=== PATIENT | female | born 1960 | race Two or more races ===

== ENCOUNTER 2016-10-06 09:03 | Emergency (ER) | payer OTHER ==
[2016-10-06 09:11] VITALS: TEMP 97.6; BMI 32.5
--- NOTE | 2016-10-06 09:49 | PDOC ---
History of Present Illness <Sina Pacheco - Last Filed: 10/06/16 13:07> - History of Present Illness Initial Comments: 10/06/16 15:12 Patient is a 56 year old female with significant medical hx of HLD and HTN who is presenting to the ED after an episode of vertigo from last night. The patient reports waking up at 4 AM with the sensation that the room is spinning. The patient fell back asleep and woke up this morning feeling lightheaded but no longer dizzy. Patient came to the hospital today for a mammogram and decided to come down to the ED for further evaluation. Pt denies any further vertigo/ dizziness, headache, dizziness. Denies any nausea, vomiting, headache, palpitations, chest pain, shortness of breath, vision changes, blurry vision, speech changes, numbness, tingling, weakness, recent colds, recent infections, or hearing changes. PMD: Nina Verdugo MD Surgical Hx: cholecystectomy <Fabiola Guerrero - Last Filed: 10/06/16 15:13> - General Chief Complaint: Lightheaded Stated Complaint: DIZZINESS Time Seen by Provider: 10/06/16 09:39 Past History - Past Medical History HTN: Yes Hypercholesterolemia: Yes - Surgical History Cholecystectomy: Yes - Immunization History Immunization Up to Date: Yes - Psycho/Social/Smoking Cessation Hx Anxiety: No Suicidal Ideation: No Smoking Status: No Smoking History: Former smoker Have you smoked in the past 12 months: No Number of Cigarettes Smoked Daily: 1 If you are a former smoker, when did you quit?: 1998 Information on smoking cessation initiated: No Hx Alcohol Use: No Drug/Substance Use Hx: No Substance Use Type: None <Sina Pacheco - Last Filed: 10/06/16 13:07> <Fabiola Guerrero - Last Filed: 10/06/16 15:13> - Past Medical History Allergies/Adverse Reactions: Allergies Allergy/AdvReac Type Severity Reaction Status Date / Time No Known Allergies Allergy Verified 10/06/16 09:08 Home Medications: Ambulatory Orders Aspirin [ASA -] 81 mg PO DAILY 10/06/16 Hydrochlorothiazide [Hctz -] 12.5 mg PO DAILY 10/06/16 Lovastatin 10 mg PO DAILY 10/06/16 Meclizine HCl [Antivert -] 25 mg PO TID PRN #20 tablet 10/06/16 Review of Systems - Review of Systems Comments:: 10/06/16 15:12 CONSTITUTIONAL: No reported: Fever, Chills, Diaphoresis, Generalized Weakness, Malaise, Loss of Appetite HEENT: No reported: Rhinorrhea, Nasal Congestion, Throat Pain, Throat Swelling, Difficulty Swallowing, Mouth Swelling, Ear Pain, Eye Pain, Visual Changes CARDIOVASCULAR: No reported: Chest Pain, Syncope, Palpitations, Irregular Heart Rate, Lightheadedness, Peripheral Edema RESPIRATORY: No reported: Cough, Shortness of Breath, SOB with Exertion, Orthopnea, Wheezing , Stridor, Hemoptysis GASTROINTESTINAL: No reported: Abdominal pain, Abdominal Distension, Nausea, Vomiting, Diarrhea, Constipation, Melena, Hematochezia GENITOURINARY: No reported: Dysuria, Frequency, Urgency, Hesitancy, Flank Pain, Genital Pain MUSCULOSKELETAL: Reported: Neck Pain No reported: Myalgia, Arthralgia, Joint Swelling, Back pain SKIN: No reported: Rash, Itching, Pallor HEMEATOLOGIC/IMMUNOLOGIC: No reported: Easy Bleeding, Easy Bruising, Lymphadenopathy, Frequent infections ENDOCRINE: No reported: Unexplained Weight Gain, Unexplained Weight Loss, Heat Intolerance , Cold Intolerance NEUROLOGIC: Reported: Vertigo, Lightheadedness No reported: Headache, Focal Weakness, Paresthesias, Unsteady Gait, Seizure, Mental Status Changes, Incontinence PSYCHIATRIC: No reported: Anxiety, Depression <Violeta Guerreroa - Last Filed: 10/06/16 15:13> *Physical Exam - Vital Signs Last Vital Signs Temp Pulse Resp BP Pulse Ox 97.6 F 71 18 164/57 98 10/06/16 09:08 10/06/16 09:08 10/06/16 09:08 10/06/16 09:08 10/06/16 09:08 <TaraFelibertoSina - Last Filed: 10/06/16 13:07> - Vital Signs Last Vital Signs Temp Pulse Resp BP Pulse Ox 97.6 F 66 18 134/72 99 10/06/16 09:08 10/06/16 12:55 10/06/16 12:55 10/06/16 12:55 10/06/16 12:55 - Physical Exam Comments: 10/06/16 15:12 GENERAL: The patient is awake, alert, and fully oriented, Nontoxic - in no acute distress. HEAD: Normocephalic, atraumatic. EYES: extraocular movements intact, sclera anicteric, conjunctiva clear. No nystagmus ENT: Normal voice, Moist mucous membranes. NECK: Normal range of motion, supple LUNGS: Breath sounds equal, clear to auscultation bilaterally. No wheezes, no rhonchi, no rales. HEART: Regular rate and rhythm, without murmur, rub or gallop. ABDOMEN: Soft, nontender, normoactive bowel sounds. No guarding, no rebound.No CVA tenderness EXTREMITIES: Normal range of motion, no edema. No clubbing or cyanosis. No cords, erythema, or tenderness. PSYCH: Normal mood, normal affect. SKIN: Warm, Dry, normal turgor. NEURO: Mental status: The patient is oriented x3. Cranial nerves: Cranial nerves II through XII are intact Motor: The upper extremities are 5 over 5 in all muscle groups. The lower extremities are 5 over 5 in all muscle groups. Negative pronator drift Sensation: Sensation is intact to light touch throughout. romberg negative Cerebellar: Zdvelg-kpugfy-wzud is normal in both upper extremities. Heel-knee- clemons is normal in both lower extremities. rapid alternating movements are normal.Gait: Normal. Heel and toe walking are normal. Tandem gait is normal. <Fabiola Guerrero - Last Filed: 10/06/16 15:13> Heart Score/ECG Review - ECG Impressions Comment:: 10/06/16 13:07 Twelve-lead EKG was performed and reviewed by me. There is normal sinus rhythm with a normal rate. Rate of 60 The axis is normal. First degree AV block There is normal R wave progression There are no ST or T wave abnormalities. <Sina Pacheco - Last Filed: 10/06/16 13:07> ED Treatment Course - LABORATORY CBC & Chemistry Diagram: 10/06/16 10:24 10/06/16 10:24 <Sina Pacheco - Last Filed: 10/06/16 13:07> - LABORATORY CBC & Chemistry Diagram: 10/06/16 10:24 10/06/16 10:24 - ADDITIONAL ORDERS Additional order review: Laboratory Results 10/06/16 10/06/16 10:24 10:24 Sodium 141 Potassium 4.2 Chloride 102 Carbon Dioxide 31 Anion Gap 8 BUN 20 H D Creatinine 0.9 D Creat Clearance w eGFR > 60 Random Glucose 102 Calcium 9.8 Total Bilirubin 0.6 D AST 19 ALT 25 Alkaline Phosphatase 111 Total Protein 7.4 Albumin 3.9 Urine Color Colorless Urine Appearance Clear Urine pH 6.0 Ur Specific [place] 1.002 Urine Protein Negative Urine Glucose (UA) Negative Urine Ketones Negative Urine Blood 1+ H Urine Nitrite Negative Urine Bilirubin Negative Urine Urobilinogen Negative Ur Leukocyte Esterase Negative Urine RBC None Urine WBC 1 Ur Epithelial Cells Rare 10/06/16 10:24 RBC 4.91 MCV 82.5 MCHC 33.0 RDW 13.8 MPV 8.3 Neutrophils % 77.4 Lymphocytes % 13.8 D Monocytes % 5.4 Eosinophils % 2.6 Basophils % 0.8 - Medications Given in the ED: ED Medications Discontinued Medications Generic Name Dose Route Start Last Admin Trade Name Freq PRN Reason Stop Dose Admin Sodium Chloride 1,000 mls @ 1,000 mls/hr 10/06/16 10:00 10/06/16 10:21 Normal Saline - IV 10/06/16 10:59 1,000 mls/hr .Q1H ONE Administration Meclizine HCl 25 mg 10/06/16 10:00 10/06/16 11:03 Antivert - PO 10/06/16 10:01 Not Given ONCE ONE Metoclopramide HCl 10 mg 10/06/16 10:00 10/06/16 11:03 Reglan Injection - IVPUSH 10/06/16 10:01 Not Given ONCE ONE <Fabiola Guerrero - Last Filed: 10/06/16 15:13> Medical Decision Making - Medical Decision Making 10/06/16 10:19 56y F hx of htn, hl, presents with complaint of vertigo in the middle of the night, when she woke up, she saw the room spinning, she went back to bed and the sypmtoms have largely resolved. Pt feels fine, denies associated palptiations, sob, cp, n/v, vision changes, dysarthria, numbness/tingling/ weakness. Pts xam is unremarakble here. possible bppv will ck labs to r/o anemia and metabolic dernagement pt feeling well and declines any meds/treatment A portion of this note was documented by scribe services under my direction. I have reviewed the details of the note, within reason, and agree with the documentation with the following case summary and management plan written by me 10/06/16 13:05 labs unremarakble pt feeling well, not dizzy, no symptoms. will dc with pmd fu return precautions were discussed I discussed the physical exam findings, ancillary test results and final diagnoses with the patient. I answered all of the patient's questions. The patient was satisfied with the care received and felt comfortable with the discharge plan and treatment plan. The patient will call their primary care physician within 24 hours to arrange follow-up and will return to the Emergency Department with any new, persistent or worsening symptoms. <Sina Pacheco - Last Filed: 10/06/16 13:07> *DC/Admit/Observation/Transfer - Discharge Dispostion Admit: No <Sina Pacheco - Last Filed: 10/06/16 13:07> - Attestations Scribe Attestion: 10/06/16 15:13 Documentation prepared by Fabiola Guerrero, acting as medical geneticist for Sina Pacheco MD. <Fabiola Guerrero - Last Filed: 10/06/16 15:13> Diagnosis at time of Disposition: Vertigo - Discharge Dispostion Disposition: HOME Condition at time of disposition: Improved - Prescriptions Prescriptions: Meclizine HCl [Antivert -] 25 mg PO TID PRN #20 tablet PRN Reason: Vertigo - Referrals Referrals: Nina Verdugo NP [Primary Care Provider] - Bobby Villanueva MD [Staff Physician] - - Patient Instructions Printed Discharge Instructions: DI for Benign Paroxysmal Positional Vertigo, DI for Vertigo Additional Instructions: Return to the emergency department immediately with ANY new, persistent or worsening symptoms including any dizziness, nausea, vomiting, vision changes, changes in your speech pattern or any other concerns. If the dizziness recurs you may try taking a meclizine You MUST call and follow up with your doctor tomorrow for further evaluation of your symptoms. Results were discussed with you. Please make sure your doctor reviews the results of your emergency evaluation.
[2016-10-06] MEDS ORDERED: MECLIZINE HCL 25 MG TABLET (FP) PO ONE (10:00)
[2016-10-06] MEDS ORDERED: SODIUM CHLORIDE 1,000 ML IV ONE (10:00)
[2016-10-06] MEDS ORDERED: METOCLOPRAMIDE HCL INJECTION 10 MG/2 ML VIAL IVPUSH ONE (10:00)
[2016-10-06 10:40] LABS: BASOPHIL 0.8 % (0-2.0); EOSINOPHIL 2.6 % (0-4.5); MCH 27.2 pg (25.7-33.7); MEAN CELL VOLUME 82.5 fl (80-96); MEAN PLT VOLUME 8.3 fl (7.5-11.1); NEUTROPHILS 77.4 % (42.8-82.8); PLATELET COUNT 258 K/MM3 (134-434); RDW 13.8 % (11.6-15.6); WHITE BLOOD COUNT 10.2 K/mm3 (4.0-10.0)
[2016-10-06 11:07] LABS: ALBUMIN 3.9 g/dl (3.4-5.0); ANION GAP 8 (8-16); CALCIUM 9.8 mg/dL (8.5-10.1); CO2 31 mmol/L (21-32); CREATININE 0.9 mg/dL (0.55-1.02); GLUCOSE,RANDOM 102 mg/dL (74-106); SGOT/AST 19 U/L (15-37); SGPT/ALT 25 U/L (12-78)
[2016-10-06 11:10] LABS: ALK PHOS 111 U/L (45-117); BILIRUBIN,TOTAL 0.6 mg/dL (0.2-1.0); TOT PROT 7.4 g/dl (6.4-8.2)
[2016-10-06 11:11] LABS: URINE APPEARANCE CLEAR; URINE BILIRUBIN NEGATIVE (NEGATIVE); URINE COLOR COLORLESS; URINE GLUCOSE (UA) NEGATIVE (NEGATIVE); URINE KETONE NEGATIVE (NEGATIVE); URINE LEUK ESTERASE NEGATIVE (NEGATIVE); URINE NITRITE NEGATIVE (NEGATIVE); URINE PROTEIN NEGATIVE (NEGATIVE); URINE UROBILINOGEN NEGATIVE E.U./dl (0.2-1.0)
[2016-10-06 11:12] LABS: URINE BLOOD 1+ (NEGATIVE)
[2016-10-06 11:15] LABS: URINE WBC 1 /hpf (3-5)
[2016-10-06 12:56] VITALS: BP 134/72; PULSE 66
--- NOTE | 2016-10-07 11:25 | EKG ---
Test Reason : Blood Pressure : / mmHG Vent. Rate : 060 BPM Atrial Rate : 060 BPM P-R Int : 232 ms QRS Dur : 090 ms QT Int : 420 ms P-R-T Axes : 042 022 028 degrees QTc Int : 420 ms SINUS RHYTHM WITH 1ST DEGREE A-V BLOCK OTHERWISE NORMAL ECG WHEN COMPARED WITH ECG OF 15-MAY-2016 20:36, NO SIGNIFICANT CHANGE WAS FOUND Confirmed by WAYLON CAMPBELL, FRANCISCO ([id number]) on 10/07/2016 11:25:05 AM Referred By: Confirmed By:FRANCISCO CONNORS MD
== END 2016-10-06 13:27 | disposition home or self-care (01) ==
LOC: JER 09:03
PROC: 3E0337Z Introduction of Electrolytic and Water Balance Substance into Peripheral Vein, Percutaneous Approach (ICD-10-PCS; principal; 2016-10-06)
DX: R42 Dizziness and giddiness (principal); I10 Essential (primary) hypertension; E78.00 Pure hypercholesterolemia, unspecified
CPT/HCPCS: 36415; 80053; 81003; 81015; 85025; 93005; 93010; 96360; 99282-25

== ENCOUNTER 2017-05-16 20:40 | Emergency (ER) | payer OTHER ==
--- NOTE | 2017-05-16 20:44 | PDOC ---
Rapid Medical Evaluation Time Seen by Provider: 05/16/17 20:43 Medical Evaluation: Allergies Allergy/AdvReac Type Severity Reaction Status Date / Time No Known Allergies Allergy Verified 10/06/16 09:08 05/16/17 20:43 I have performed a brief in-person evaluation of this patient. The patient presents with a chief complaint of: hx of HTN, "i think i have high blood pressure", "pinching pain" to R chest, denies SOB I have ordered the following: EKG The patient will proceed to the ED for further evaluation. Discharge Disposition - Diagnosis Chest pain - Referrals - Patient Instructions - Post Discharge Activity
[2017-05-16 20:47] VITALS: TEMP 98.1; BMI 32.5
--- NOTE | 2017-05-16 21:33 | PDOC ---
History of Present Illness - General Exam Limitations: No Limitations - History of Present Illness Initial Comments: 05/16/17 21:38 57 y.o female with significant PMHx of HLD and HTN, who presents to the emergency room complaining of nonexertional, nonradiating, right sided chest discomfort that occurred at rest at 6:00pm this evening, approximately 3 hours ago. She describes the chest discomfort as a weird feeling that has since subsided. At the time of discomfort, she took her blood pressure medication because she thought it might have been high. Just prior to arrival to the ED, she measured her BP which was still elevated and prompted her to come into the ED. Denies headache, lightheadedness, dizziness, LOC. Denies SOB, cough. Denies leg swelling. Denies recent illness, fever, chills, nausea, vomiting. Denies sick contact. Allergies: NKA Surgical hx: cholecystectomy Social hx: No tobacco use. PCP: Dr. Maguire <Laury Brown - Last Filed: 05/16/17 21:38> - General History Source: Patient <Michel Murguia - Last Filed: 05/16/17 22:16> - General Chief Complaint: Chest Pain Stated Complaint: CHEST PAIN Time Seen by Provider: 05/16/17 20:43 Past History <Laury Brown - Last Filed: 05/16/17 21:38> - Past Medical History COPD: No HTN: Yes Hypercholesterolemia: Yes - Surgical History Cholecystectomy: Yes - Immunization History Immunization Up to Date: Yes - Suicide/Smoking/Psychosocial Hx Smoking Status: No Smoking History: Former smoker Have you smoked in the past 12 months: No Number of Cigarettes Smoked Daily: 1 If you are a former smoker, when did you quit?: 1998 Information on smoking cessation initiated: No Hx Alcohol Use: No Drug/Substance Use Hx: No Substance Use Type: None <Michel Murguia - Last Filed: 05/16/17 22:16> - Past Medical History Allergies/Adverse Reactions: Allergies Allergy/AdvReac Type Severity Reaction Status Date / Time No Known Allergies Allergy Verified 05/16/17 20:47 Home Medications: Ambulatory Orders Aspirin [ASA -] 81 mg PO DAILY 10/06/16 Hydrochlorothiazide [Hctz -] 12.5 mg PO DAILY 10/06/16 Lovastatin 10 mg PO DAILY 10/06/16 Meclizine HCl [Antivert -] 25 mg PO TID PRN #20 tablet 10/06/16 Review of Systems - Review of Systems Able to Perform ROS?: Yes Comments:: 05/16/17 21:38 CONSTITUTIONAL: Absent: fever, no chills, no fatigue EYES: Absent: visual changes ENT: Absent: ear pain, no sore throat CARDIOVASCULAR: Present: +1 episode of right sided chest discomfort Absent: no palpitations RESPIRATORY: Absent: cough, no SOB GI: Absent: abdominal pain, no nausea, no vomiting, no constipation, no diarrhea GENITOURINARY: Absent: dysuria, no frequency, no hematuria MUSCULOSKELETAL: Absent: back pain, no arthralgia, no myalgia SKIN: Absent: rash <Laury Brown - Last Filed: 05/16/17 21:38> *Physical Exam - Vital Signs Last Vital Signs Temp Pulse Resp BP Pulse Ox 98.1 F 68 17 176/98 99 05/16/17 20:44 05/16/17 20:44 05/16/17 20:44 05/16/17 20:44 05/16/17 20:44 - Physical Exam Comments: 05/16/17 21:39 GENERAL: Well-appearing, well-nourished. No apparent distress. HEENT: Normocephalic, atraumatic. PERRL, EOM intact. CARDIOVASCULAR: Normal S1, S2. Regular rate and rhythm. PULMONARY: Clear to auscultation bilaterally. ABDOMEN: Soft, non-distended, non-tender. EXTREMITIES: Normal ROM in all four extremities. No gross deformities. SKIN: Warm, dry. No rash NEUROLOGICAL: No focal neurological deficits. <Laury Brown - Last Filed: 05/16/17 21:38> - Vital Signs Last Vital Signs Temp Pulse Resp BP Pulse Ox 98.1 F 68 17 176/98 99 05/16/17 20:44 05/16/17 20:44 05/16/17 20:44 05/16/17 20:44 05/16/17 20:44 <Michel Murguia - Last Filed: 05/16/17 22:16> Heart Score/ECG Review #1 General ECG Interpretation: Sinus Rhythm 05/16/17 21:39 Sinus rhythm at a rate of 65bpm <Laury Brown - Last Filed: 05/16/17 21:38> Medical Decision Making - Medical Decision Making 05/16/17 22:05 Dr. Murguia: The scribe's documentation has been prepared under my direction and personally reviewed by me in its entirery. I confirm that the note above accurately reflects all work, treatment, procedures, and medical decision making performed by me. BP is 130/80. Pt feels well. Will discharge. Advised to take her medication as usuall <Michel Murguia - Last Filed: 05/16/17 22:16> *DC/Admit/Observation/Transfer <Laury Brown - Last Filed: 05/16/17 21:38> - Discharge Dispostion Admit: No <Michel Murguia - Last Filed: 05/16/17 22:16> Diagnosis at time of Disposition: Chest pain, Elevated blood pressure - Discharge Dispostion Disposition: HOME Condition at time of disposition: Improved - Referrals Referrals: Akanksha Aldana MD [Primary Care Provider] - Emmanuel Ramos MD [Staff Physician] - - Patient Instructions Printed Discharge Instructions: High Blood Pressure, DI for Chest Pain - Post Discharge Activity
[2017-05-16 22:08] VITALS: PULSE 61
[2017-05-16 22:15] VITALS: BP 139/85
--- NOTE | 2017-05-17 11:35 | EKG ---
Test Reason : Blood Pressure : / mmHG Vent. Rate : 065 BPM Atrial Rate : 065 BPM P-R Int : 228 ms QRS Dur : 084 ms QT Int : 402 ms P-R-T Axes : 043 035 032 degrees QTc Int : 418 ms SINUS RHYTHM WITH 1ST DEGREE A-V BLOCK OTHERWISE NORMAL ECG WHEN COMPARED WITH ECG OF 06-OCT-2016 10:52, NO SIGNIFICANT CHANGE WAS FOUND Confirmed by FRANCISCO CONNORS MD ([id number]) on 05/17/2017 11:35:41 AM Referred By: Confirmed By:FRANCISCO CONNORS MD
== END 2017-05-16 22:15 | disposition home or self-care (01) ==
LOC: JER 20:40
PROC: 3E033GC Introduction of Other Therapeutic Substance into Peripheral Vein, Percutaneous Approach (ICD-10-PCS; principal; 2017-05-16)
DX: I10 Essential (primary) hypertension (principal); E78.00 Pure hypercholesterolemia, unspecified
CPT/HCPCS: 93005; 93010; 99283-25

== ENCOUNTER 2020-02-03 00:47 | Emergency (ER) | payer OTHER ==
--- NOTE | 2020-02-03 01:26 | PDOC ---
*Physical Exam - Vital Signs Last Vital Signs Temp Pulse Resp BP Pulse Ox 98.8 F 97 H 16 118/74 98 02/03/20 00:50 02/03/20 00:50 02/03/20 00:50 02/03/20 00:50 02/03/20 00:50 Medical Decision Making - Medical Decision Making 02/03/20 01:26 Patient seen by the advanced practice provider under my supervision. Ancillary testing reviewed as necessary. I agree with plan as outlined by the advanced practice provider. Discharge - Discharge Information Problems reviewed: Yes Clinical Impression/Diagnosis: Hemorrhagic cystitis Condition: Fair - Follow up/Referral Referrals: Roberto Martinez PA [Primary Care Provider] - - Patient Discharge Instructions - Post Discharge Activity
[2020-02-03 01:42] VITALS: BP 149/81; PULSE 65; TEMP 98.3; BMI 33.5
[2020-02-03 01:59] LABS: EPI CELLS 10 /uL (0-25.1); URINE APPEARANCE TURBID; URINE BACTERIA 4 /uL (0-1359); URINE BILIRUBIN 1+ (NEGATIVE); URINE COLOR RED; URINE GLUCOSE (UA) NEGATIVE (NEGATIVE); URINE KETONE NEGATIVE (NEGATIVE); URINE LEUK ESTERASE 3+ (NEGATIVE); URINE NITRITE NEGATIVE (NEGATIVE); URINE PROTEIN 3+ (NEGATIVE); URINE UROBILINOGEN 0.2 mg/dL (0.2-1.0); URINE WBC 6590 /uL (0-25.8)
--- NOTE | 2020-02-03 02:10 | PDOC ---
History of Present Illness - General Chief Complaint: Urinary Problem Stated Complaint: URINARY BURNING Time Seen by Provider: 02/03/20 01:21 History Source: Patient Exam Limitations: No Limitations - History of Present Illness Travel History: No Initial Comments: 02/03/20 02:11 HISTORY OF PRESENT ILLNESS: 60-year-old woman with past medical history of hypertension, hyperlipidemia and frequent UTIs presents emergency department for evaluation of dysuria, hematuria and suprapubic pain for 2 days. Patient reports symptoms are consistent with her usual UTI. She denies fevers, chills, flank pain. No recent travel or sick contacts. PAST MEDICAL HISTORY: see HPI SURGICAL HISTORY: Denies ALLERGIES: No known drug allergies REVIEW OF SYSTEMS General/Constitutional: Denies fever or chills. Denies weakness, weight change. HEENT: Denies change in vision. Denies ear pain or discharge. Denies sore throat. Cardiovascular: Denies chest pain or shortness of breath. Respiratory: Denies cough, wheezing, or hemoptysis. Gastrointestinal: Denies nausea, vomiting, diarrhea or constipation. Denies rectal bleeding. Genitourinary: see HPI Musculoskeletal: Denies joint or muscle swelling or pain. Denies neck or back pain. Skin and breasts: Denies rash or easy bruising. Neurologic: Denies headache, vertigo, loss of consciousness, or loss of sensation. Psychiatric: Denies depression or anxiety. Endocrine: Denies increased thirst. Denies abnormal weight change. Hematologic/Lymphatic: Denies anemia, easy bleeding, or history of blood clots. Allergic/Immunologic: Denies hives or skin allergy. Denies latex allergy. PHYSICAL EXAM General Appearance: Well-appearing, appropriately dressed. No apparent distress, no intoxication. Gastrointestinal/Abdominal: Normal bowel sounds. Abdomen soft, non-distended. No tenderness or rebound tenderness. No organomegaly, pulsatile mass, guarding, hernia, hepatomegaly, splenomegaly. Musculoskeletal/Extremities: Normal inspection. FROM of all extremities, normal capillary refill. Pelvis Stable. No CVA tenderness. No tenderness to extremities, pedal edema, swelling, erythema or deformity. 02/03/20 02:13 Past History - Medical History Allergies/Adverse Reactions: Allergies Allergy/AdvReac Type Severity Reaction Status Date / Time No Known Allergies Allergy Verified 02/03/20 01:24 Home Medications: Ambulatory Orders Aspirin [ASA -] 81 mg PO DAILY 10/06/16 Hydrochlorothiazide [Hctz -] 12.5 mg PO DAILY 10/06/16 Lovastatin 10 mg PO DAILY 10/06/16 Meclizine HCl [Antivert -] 25 mg PO TID PRN #20 tablet 10/06/16 Cephalexin Monohydrate [Keflex -] 500 mg PO BID #14 capsule 02/03/20 Phenazopyridine HCl [Pyridium -] 100 mg PO PC #6 tablet 02/03/20 COPD: No HTN: Yes Hypercholesterolemia: Yes - Surgical History Cholecystectomy: Yes - Reproductive History Is Patient Now?: No - Immunization History Immunization Up to Date: Yes - Psycho-Social/Smoking History Smoking Status: No Smoking History: Never smoked Have you smoked in the past 12 months: No Number of Cigarettes Smoked Daily: 1 If you are a former smoker, when did you quit?: 1998 Information on smoking cessation initiated: No - Substance Abuse Hx (Audit-C & DAST Scrn) How often the patient has a drink containing alcohol: Never Score: In Men: 4 or > Positive; In Women: 3 or > Positive: 0 Screen Result (Pos requires Nsg. Audit-10AR): Negative In the last yr the pt used illegal drug/Rx for NonMed reason: No Score: Yes response is considered Positive: 0 Screen Result (Positive result requires Nsg. DAST-10): Negative *Physical Exam - Vital Signs Last Vital Signs Temp Pulse Resp BP Pulse Ox 98.3 F 65 16 149/81 97 02/03/20 00:50 02/03/20 00:50 02/03/20 00:50 02/03/20 00:50 02/03/20 00:50 ED Treatment Course - ADDITIONAL ORDERS Additional order review: Laboratory Results 02/03/20 01:30 Urine Color Red Urine Appearance Turbid Urine pH 5.0 Ur Specific [place] 1.017 Urine Protein 3+ H Urine Glucose (UA) Negative Urine Ketones Negative Urine Blood 3+ H Urine Nitrite Negative Urine Bilirubin 1+ H Urine Urobilinogen 0.2 Ur Leukocyte Esterase 3+ H Urine WBC (Auto) 6590 Urine Casts (Auto) 37 U Epithel Cells (Auto) 10 Urine Bacteria (Auto) 4 Medical Decision Making - Medical Decision Making 02/03/20 02:19 A/P: 60yo F with dysuria, hematuria and suprapubic pain x2 days UA, Ucx, UGC Pyridium Urinalysis suggestive of infection but with low bacteria count. GC added to her urine. Discharge home with prescription for Keflex and Pyridium and follow-up. Discharge - Discharge Information Problems reviewed: Yes Clinical Impression/Diagnosis: Hemorrhagic cystitis Condition: Fair Disposition: HOME - Admission No - Additional Discharge Information Prescriptions: Cephalexin Monohydrate [Keflex -] 500 mg PO BID #14 capsule Phenazopyridine HCl [Pyridium -] 100 mg PO PC #6 tablet - Follow up/Referral Referrals: Roberto Martinez PA [Primary Care Provider] - - Patient Discharge Instructions Additional Instructions: Rest, drink lots of fluids: Teas, water, soups Avoid contact with others until fevers and symptoms resolved Lots of handwashing and good hygiene Continue [id number] medications for symptomatic relief Tylenol or Motrin for fever and pain Continue all of antibiotics until completed Followup with private physician in one week for repeat urinalysis/reevaluation Return to emergency department for worsened symptoms, fevers, dehydration - Post Discharge Activity
[2020-02-03] MEDS ORDERED: PHENAZOPYRIDINE HCL 100 MG TABLET (FP) PO ONE (02:11)
[2020-02-03] MEDS ORDERED: PHENAZOPYRIDINE HCL 100 MG TABLET (FP) ONE (02:12)
[2020-02-03 03:12] LABS: HYALINE CASTS 0 /uL (0-3.1)
[2020-02-03 03:13] LABS: URINE CRYSTALS NONE SEEN /hpf; YEAST NONE SEEN (NEGATIVE)
== END 2020-02-03 02:23 | disposition home or self-care (01) ==
LOC: JER 00:47
DX: N30.91 Cystitis, unspecified with hematuria (principal)
CPT/HCPCS: 36415; 81003; 87086; 87491; 87591; 99283-25

== ENCOUNTER 2020-07-15 12:09 | Emergency (ER) | payer OTHER ==
[2020-07-15 12:45] VITALS: BMI 36.6
[2020-07-15] MEDS ORDERED: HYDROCHLOROTHIAZIDE 12.5 MG CAPSULE (FP) PO ONE (13:22)
[2020-07-15] MEDS ORDERED: ACETAMINOPHEN 325 MG TABLET (FP) PO ONE (13:22)
[2020-07-15] MEDS ORDERED: ACETAMINOPHEN 325 MG TABLET (FP) ONE ×2 (13:26→13:28)
[2020-07-15] MEDS ORDERED: HYDROCHLOROTHIAZIDE 25 MG TABLET (FP) ONE (13:27)
[2020-07-15 14:02] LABS: BASO % 1.1 % (0-2.0); EOS % 2.6 % (0-4.5); HEMATOCRIT 40.1 % (32.4-45.2); HEMOGLOBIN 13.5 GM/dL (10.7-15.3); LYMPH % 18.7 % (8-40); MCHC 33.7 g/dl (32.0-36.0); MEAN PLT VOLUME 9.1 fl (7.5-11.1); MONO % 7.8 % (3.8-10.2); NEUT % 69.8 % (42.8-82.8); PLATELET COUNT 239 K/MM3 (134-434); RBC 4.84 M/mm3 (3.60-5.2); RDW 13.4 % (11.6-15.6)
[2020-07-15 14:27] LABS: CHLORIDE 105 mmol/L (98-107); POTASSIUM 3.9 mmol/L (3.5-5.1); SODIUM 139 mmol/L (136-145)
[2020-07-15 14:28] LABS: CALCIUM 9.7 mg/dL (8.5-10.1)
[2020-07-15 14:29] LABS: ALBUMIN 3.8 g/dl (3.4-5.0); ANION GAP 5 MMOL/L (8-16); BLOOD UREA NITROGEN 25.5 mg/dL (7-18); CO2 29 mmol/L (21-32); GLUCOSE,RANDOM 98 mg/dL (74-106)
[2020-07-15 14:32] LABS: CREATININE 0.8 mg/dL (0.55-1.3); SGOT/AST 20 U/L (15-37); SGPT/ALT 29 U/L (13-61)
[2020-07-15 14:33] LABS: BILIRUBIN,TOTAL 0.4 mg/dL (0.2-1); TOT PROT 7.5 g/dl (6.4-8.2)
[2020-07-15 14:35] LABS: ALK PHOS 119 U/L (45-117)
[2020-07-15 15:25] VITALS: BP 129/64; PULSE 60; TEMP 98.3
== END 2020-07-15 15:24 | disposition home or self-care (01) ==
LOC: JER 12:09
DX: R51.9 Headache, unspecified (principal); I10 Essential (primary) hypertension
CPT/HCPCS: 36415; 80053; 82550; 84439; 84443; 84484; 85025; 99283-25

== ENCOUNTER 2021-03-17 02:24 | Emergency (ER) | payer OTHER ==
[2021-03-17 02:53] VITALS: TEMP 98; BMI 34.7
[2021-03-17 03:05] LABS: HEMATOCRIT 38.7 % (32.4-45.2); MCH 27.5 pg (25.7-33.7); MCHC 33.7 g/dl (32.0-36.0); MEAN CELL VOLUME 81.8 fl (80-96); MEAN PLT VOLUME 8.2 fl (7.5-11.1); PLATELET COUNT 241 10^3/uL (134-434); RBC 4.73 M/mm3 (3.60-5.2); RDW 13.6 % (11.6-15.6); WHITE BLOOD COUNT 9.8 K/mm3 (4.0-10.0)
[2021-03-17 03:24] LABS: CHLORIDE 107 mmol/L (98-107); SODIUM 141 mmol/L (136-145)
[2021-03-17 03:25] LABS: CALCIUM 9.1 mg/dL (8.5-10.1)
[2021-03-17 03:26] LABS: ANION GAP 6 MMOL/L (8-16); BLOOD UREA NITROGEN 24.6 mg/dL (7-18); CO2 29 mmol/L (21-32); GLUCOSE,RANDOM 107 mg/dL (74-106)
[2021-03-17 03:29] LABS: CREATININE 1.1 mg/dL (0.55-1.3)
[2021-03-17 03:58] VITALS: BP 151/74; PULSE 67
== END 2021-03-17 03:58 | disposition home or self-care (01) ==
LOC: JER 02:24
DX: I10 Essential (primary) hypertension (principal)
CPT/HCPCS: 36415; 70450-TC; 80048; 84484; 85027; 93005; 93010; 99285-25

== ENCOUNTER 2022-10-17 16:21 | Emergency (ER) | payer OTHER ==
[2022-10-17 16:34] VITALS: PULSE 60; TEMP 98.3; BMI 36.6
[2022-10-17 18:06] LABS: BASO % 0.6 % (0-2.0); EOS % 2.4 % (0-4.5); HEMATOCRIT 37.1 % (32.4-45.2); HEMOGLOBIN 12.6 GM/dL (10.7-15.3); LYMPH % 15.5 % (8-40); MCHC 33.9 g/dl (32.0-36.0); MEAN CELL VOLUME 82.4 fl (80-96); NEUT % 74.5 % (42.8-82.8); PLATELET COUNT 248 10^3/uL (134-434); WHITE BLOOD COUNT 10.5 K/mm3 (4.0-10.0)
[2022-10-17 18:17] VITALS: BP 145/76; RESP 18
[2022-10-17 18:24] LABS: POTASSIUM 4.7 mmol/L (3.5-5.1)
[2022-10-17 18:26] LABS: CALCIUM 10.1 mg/dL (8.5-10.1)
[2022-10-17 18:27] LABS: ALBUMIN 3.9 g/dl (3.4-5.0); BLOOD UREA NITROGEN 33.5 mg/dL (7-18)
[2022-10-17 18:28] LABS: MAGNESIUM 1.9 mg/dL (1.8-2.4)
[2022-10-17 18:30] LABS: CREATININE 1.1 mg/dL (0.55-1.3)
[2022-10-17 18:31] LABS: BILIRUBIN,TOTAL 0.4 mg/dL (0.2-1); TOT PROT 7.3 g/dl (6.4-8.2)
[2022-10-17 18:35] LABS: N-TERMINAL BNP 146.6 pg/ml (5-125)
== END 2022-10-17 20:45 | disposition home or self-care (01) ==
LOC: JER 16:21
DX: R07.89 Other chest pain (principal)
CPT/HCPCS: 36415; 71045-TC-FY; 80053; 83690; 83735; 83880; 84484; 85025; 85379; 93005; 93010; 99285-25